=== PATIENT | female | born 1995 | race African-American/Black ===

== ENCOUNTER 2018-12-28 12:49 | Emergency (ER) | payer SELFPAY ==
--- NOTE | 2018-12-28 13:53 | RAD ---
3 views of the facial bones: 12/28/2018 COMPARISON: None HISTORY: Injury, trauma, pain FINDINGS: The lateral examination is slightly limited with respect to assessment of the nasal bones s econdary to technique. There is a transverse fracture of the nasal bones superiorly with no significant displacement appreciated. Imaged paranasal sinuses/mastoid air cells appear grossly unremarkable. IMPRESSION: Findings suggesting nondisplaced acute nasal bone fracture.
== END 2018-12-28 14:08 | disposition home or self-care (01) ==
LOC: ERS 12:49
DX: S02.2XXA Fracture of nasal bones, initial encounter for closed fracture (principal); V89.2XXA Person injured in unspecified motor-vehicle accident, traffic, initial encounter
CPT/HCPCS: 70150

== ENCOUNTER 2019-04-23 14:46 | Emergency (ER) | payer SELFPAY ==
[2019-04-23 16:17] LABS: Bilirubin Negative (Negative); Blood, Urine Negative (Negative); Clarity Turbid (Clear); Glucose, Urine (Dipstick) Normal (Negative); Leukocyte Negative Leu/uL (Negative); Nitrite Negative (Negative); Protein, Urine (Dipstick) Negative (Neg-Trace); Urobilinogen Normal mg/dL (Less than 2)
[2019-04-23] MEDS ORDERED: Ondansetron ODT 4 MG TAB ONE (16:20)
== END 2019-04-23 17:04 | disposition home or self-care (01) ==
LOC: ERS 14:46
DX: O21.0 Mild hyperemesis gravidarum (principal); Z3A.10 10 weeks gestation of pregnancy
CPT/HCPCS: 81003; 87086; 99284; Q0162

== ENCOUNTER 2019-05-07 14:04 | Emergency (ER) | payer SELFPAY ==
--- NOTE | 2019-05-07 15:50 | ULT ---
TRANSVAGINAL PELVIC ULTRASOUND: HISTORY: Vaginal bleeding and cramping. COMPARISON: None. FINDINGS: The uterus measures 9.4 x 4.9 x 4 cm. The ovaries are not well seen due to bowel gas. There appears to be an abnormally implanted gestational sac, which is dysplastic, in the lower uterin e segment, with a mean sac diameter of 1.4 cm. A pole is measured with a crown-rump length of 0.4 cm. No heart tones are appreciated. There is increased vascularity of the uterine fundus. IMPRESSION: Imaging findings suspicious for but not diagnostic of failure. Close follow-up hCG and ult rasound are recommended. POS: CET
[2019-05-07 16:20] LABS: #Basophils 0.1 thou/uL (0.0-0.2); #Eosinphils 0.1 thou/uL (0.0-0.7); #Lymphocytes 1.7 thou/uL (1.20-3.40); #Monocytes 0.6 thou/uL (0.11-0.59); #Neutrophils 5.8 thou/uL (1.40-6.50); %Basophils 0.7 % (0.0-1.0); %Eosinophils 1.4 % (0.0-10.0); %Lymphocytes 20.9 % (21.0-51.0); %Monocytes 7.7 % (0.0-10.0); %Neutrophils 69.3 % (42.0-75.0); Hemoglobin 12.3 g/dL (12.0-16.0); Mean Corpuscular HGB CONC 33.5 g/dL (32.0-36.0); Mean Corpuscular Hemoglobin 27.9 pg (27.0-31.0); Mean Corpuscular Volume 83.3 fL (78.0-98.0); Mean Platelet Volume 9.5 fL (7.4-10.4); Platelet Count 222 thou/uL (130-400); RBC Distribution Width 12.6 % (11.5-14.5); Red Blood Cell (RBC) Count 4.41 mill/uL (4.20-5.40); White Blood Cell (WBC) Count 8.3 thou/uL (4.8-10.8)
== END 2019-05-07 17:19 | disposition home or self-care (01) ==
LOC: ERS 14:04
DX: O03.9 Complete or unspecified spontaneous abortion without complication (principal)
CPT/HCPCS: 36415; 36416; 76856; 84702; 85025; 86850; 86900; 86901

== ENCOUNTER 2019-05-12 14:37 | Emergency (ER) | payer SELFPAY | END 2019-05-12 16:02 | disposition home or self-care (01) | LOC: ERS 14:37 | DX: O03.9 Complete or unspecified spontaneous abortion without complication (principal) | CPT/HCPCS: 36415; 84702; 99284 ==

== ENCOUNTER 2019-05-14 22:02 | Emergency (ER) | payer SELFPAY ==
[2019-05-14 22:54] LABS: #Lymphocytes 1.2 thou/uL (1.20-3.40); #Monocytes 0.6 thou/uL (0.11-0.59); #Neutrophils 7.1 thou/uL (1.40-6.50); %Basophils 0.3 % (0.0-1.0); %Eosinophils 0.4 % (0.0-10.0); %Lymphocytes 13.8 % (21.0-51.0); %Monocytes 6.9 % (0.0-10.0); %Neutrophils 78.6 % (42.0-75.0); Hemoglobin 9.2 g/dL (12.0-16.0); Mean Corpuscular HGB CONC 32.4 g/dL (32.0-36.0); Mean Corpuscular Hemoglobin 27.4 pg (27.0-31.0); Mean Corpuscular Volume 84.6 fL (78.0-98.0); Mean Platelet Volume 9.1 fL (7.4-10.4); Platelet Count 210 thou/uL (130-400); RBC Distribution Width 12.2 % (11.5-14.5); Red Blood Cell (RBC) Count 3.36 mill/uL (4.20-5.40)
== END 2019-05-14 23:47 | disposition home or self-care (01) ==
LOC: ERS 22:02
DX: O03.9 Complete or unspecified spontaneous abortion without complication (principal)
CPT/HCPCS: 36415; 84702; 85025; 86850; 86900; 86901; 99284

== ENCOUNTER 2019-10-20 21:57 | Emergency (ER) | payer OTHER ==
[2019-10-20] MEDS ORDERED: Lidocaine 1% w/Epinephrine 1:100K 20 ML VIAL ONE ×2 (22:32→22:46)
[2019-10-20] MEDS ORDERED: HYDROcodone/Acetaminophen 10/325 mg Tablet ONE (23:06)
[2019-10-20] MEDS ORDERED: Ondansetron ODT 4 MG TAB ONE (23:48)
== END 2019-10-20 23:57 | disposition home or self-care (01) ==
LOC: ERS 21:57
DX: L02.31 Cutaneous abscess of buttock (principal); Z79.899 Other long term (current) drug therapy
CPT/HCPCS: 10060; Q0162

== ENCOUNTER 2020-09-17 14:02 | Emergency (ER) | payer BC, OTHER, SELFPAY ==
[2020-09-17 14:45] LABS: BHCG - Serum POSITIVE (NEGATIVE); Pregs Control Background? CLEAR/WHITE (CLR/WHITE); Pregs Control Bar Appear? YES (CONTROL BAR)
[2020-09-17 14:50] LABS: #Eosinphils 0.1 thou/uL (0.0-0.7); #Lymphocytes 2.2 thou/uL (1.20-3.40); #Monocytes 0.7 thou/uL (0.11-0.59); %Basophils 0.3 % (0.0-1.0); %Eosinophils 1.4 % (0.0-10.0); %Lymphocytes 31.5 % (21.0-51.0); %Monocytes 9.9 % (0.0-10.0); %Neutrophils 56.9 % (42.0-75.0); Mean Corpuscular HGB CONC 32.3 g/dL (32.0-36.0); Mean Corpuscular Hemoglobin 26.9 pg (27.0-31.0); Mean Corpuscular Volume 83.3 fL (78.0-98.0); Mean Platelet Volume 9.5 fL (7.4-10.4); Platelet Count 237 thou/uL (130-400); Red Blood Cell (RBC) Count 4.08 mill/uL (4.20-5.40)
[2020-09-17 15:03] LABS: Bacteria/HPF None Seen HPF (None Seen); Bilirubin Negative (Negative); Blood, Urine 3+ (Negative); Clarity Clear (Clear); Glucose, Urine (Dipstick) Normal (Negative); Ketone, Urine 10 mg/dL (Negative); Leukocyte Negative Leu/uL (Negative); Nitrite Negative (Negative); Protein, Urine (Dipstick) 30 mg/dL (Neg-Trace); RBC/HPF Greater than 50 HPF (0-3); Specific Gravity, Urine 1.032 (1.002-1.036); Squamous Epithelial 0-3 HPF (0-3); Urobilinogen Normal mg/dL (Less than 2); pH, Urine 5.5 (5.0-9.0)
--- NOTE | 2020-09-17 16:21 | ULT ---
Pelvic sonogram transabdominal and transvaginal imaging with duplex evaluation HISTORY: Pelvic pain and bleeding. Beta hCG 1983. FINDINGS: Uterus measures up to 8.0 cm length. Endometrium is 0.9 cm thick without internal gestation al sac apparent. No free fluid within the pelvis. Right ovary is 3.6 cm length with good color and spectral Doppler flow. A lobular complex cystic mass at the left adnexa measures up to 8.7 cm x 7.7 cm x 5.8 cm greatest diameters. Thin internal septation. Small amount of Internal dependent debris. Good arterial flow is detected at the periphery , likely the remainder of the left ovary. IMPRESSION : Intrauterine gestational sac NOT visualized. Please consider close continued clinical and sonographic follow-up. Very large left adnexal cyst with slight complication (thin septation and small amount of internal de bris) 8.7 cm.
== END 2020-09-17 17:45 | disposition home or self-care (01) ==
LOC: ERS 14:02
DX: O20.0 Threatened abortion (principal); O99.891 Other specified diseases and conditions complicating pregnancy; N83.8 Other noninflammatory disorders of ovary, fallopian tube and broad ligament; Z3A.09 9 weeks gestation of pregnancy
CPT/HCPCS: 76856; 81003; 81015; 84702; 84703; 85025; 86850; 86900; 86901

== ENCOUNTER 2020-09-22 12:27 | Observation (INO) | payer BC, SELFPAY ==
[~2020-09-22 12:27] MED LIST: Dexamethasone 20 MG/5 ML VIAL ONE; Glycopyrrolate 0.2 MG/ML 5 ML SYRINGE ONE; Ketorolac Tromethamine 30 MG/ML VIAL ONE; Lidocaine 1% PF 5 ML VIAL ONE; Ondansetron PF 4 MG/2 ML Vial ONE; PROPOFOL 200 MG/20 ML VIAL ONE; Rocuronium Bromide 10 MG/ML (10ML VIAL) ONE; Succinylcholine 200 MG/10 ml SYRINGE FS ONE
[2020-09-22 13:21] LABS: #Lymphocytes 1.4 thou/uL (1.20-3.40); #Monocytes 0.4 thou/uL (0.11-0.59); #Neutrophils 6.6 thou/uL (1.40-6.50); %Basophils 0.3 % (0.0-1.0); %Eosinophils 0.5 % (0.0-10.0); %Lymphocytes 16.3 % (21.0-51.0); %Monocytes 4.8 % (0.0-10.0); %Neutrophils 78.1 % (42.0-75.0); Hemoglobin 11.7 g/dL (12.0-16.0); Mean Corpuscular HGB CONC 31.5 g/dL (32.0-36.0); Mean Corpuscular Hemoglobin 26.6 pg (27.0-31.0); Mean Corpuscular Volume 84.5 fL (78.0-98.0); Mean Platelet Volume 9.2 fL (7.4-10.4); Platelet Count 271 thou/uL (130-400); RBC Distribution Width 12.9 % (11.5-14.5); Red Blood Cell (RBC) Count 4.38 mill/uL (4.20-5.40); White Blood Cell (WBC) Count 8.4 thou/uL (4.8-10.8)
[2020-09-22] MEDS ORDERED: Ondansetron PF 4 MG/2 ML Vial ONE (14:40)
[2020-09-22 15:07] LABS: ALT (SGPT) Less than 7 U/L (8-55); AST (SGOT) 14 U/L (5-34); Albumin 4.7 g/dL (3.5-5.0); Alkaline Phosphatase 102 U/L (40-110); Anion Gap 18 mmol/L (10-20); BUN (Urea Nitrogen) 6 mg/dL (7.0-18.7); Bilirubin, Total 0.2 mg/dL (0.2-1.2); Calc. Creatinine Clearance 0 mL/min (70-130); Calcium 9.3 mg/dL (7.8-10.44); Carbon Dioxide 20 mmol/L (22-29); Chloride 106 mmol/L (98-107); Glucose 95 mg/dL (70-105); Potassium 3.4 mmol/L (3.5-5.1); Protein, Total 8.7 g/dL (6.0-8.3); Sodium 141 mmol/L (136-145)
[2020-09-22] MEDS ORDERED: Ondansetron ODT 8 MG TAB ONE (15:10)
--- NOTE | 2020-09-22 15:26 | ULT ---
Exam: Pelvic ultrasound HISTORY: Left-sided pelvic pain and vaginal bleeding. COMPARISON: 09/17/2020 TECHNIQUE: Multiple grayscale and color Doppler images were obtained in a transabdominal pelvic ultra sound. Spectral analysis of the Doppler waveforms of the ovaries were performed. FINDINGS: CERVIX: Unremarkable UTERUS: Normal in size without focal abnormality. ENDOMETRIAL STRIPE: 5 mm which is within normal limits for a normal menstruating female patient. No f luid or fluid collection is seen in the endometrial canal. No free fluid is present. RIGHT OVARY: Normal flow, without focal mass. LEFT OVARY:There is a large anechoic structure associated with the left ovary measuring 9 cm which wa s also seen on prior exam and overall unchanged in size. Again noted is suggestion of minimal increased echogenic material dependently which may represent a small amount of debris. Thin septation posteriorly is also again noted. Doppler evaluation with spectral analysis of the thin mantle of left ovarian tissue demonstrates arterial and venous flow. IMPRESSION: 1. Again, no fluid collection is seen in the endometrial canal to suggest an intrauterine gestation. Continued serial follow-up beta hCG levels are recommended. Ectopic patency cannot be excluded based on sonographic evaluation. 2. Persistent large left adnexal cyst with thin septation small amount of debris. Largest measurement is approximately 9 cm.
[2020-09-22] MEDS ORDERED: Ondansetron ODT 4 MG TAB SL PRN (16:30)
[2020-09-22] MEDS ORDERED: Acetaminophen 325 MG TAB PO PRN (16:30)
[2020-09-22] MEDS ORDERED: Ondansetron PF 4 MG/2 ML Vial IVP PRN (16:30)
[2020-09-22] MEDS ORDERED: Sodium Chloride 0.9% 20 ML ONE (17:18)
[2020-09-22] MEDS ORDERED: EPINEPHrine 1 MG/ML AMP ONE (17:32)
[2020-09-22] MEDS ORDERED: Bupivacaine PF 0.5% 30 ML VIAL ONE (17:32)
[2020-09-22 18:09] LABS: SARS-CoV-2 NAA Rapid Test Not Detected (NotDetected)
[2020-09-22] MEDS ORDERED: Morphine 4 MG/ML VIAL SLOW IVP SCH (18:15)
[2020-09-22] MEDS ORDERED: Midazolam HCl 2 mg/2 ml Vial ONE ×2 (19:33→19:40)
[2020-09-22] MEDS ORDERED: Fentanyl 100 MCG/2 ML VIAL ONE ×3 (19:40→22:27)
[2020-09-22] MEDS ORDERED: Silver Nitrate Application 1 EACH ONE (21:39)
[2020-09-22] MEDS ORDERED: SUGAMMADEX SODIUM 200 MG/2 ML VIAL ONE (21:47)
[2020-09-22] MEDS ORDERED: Promethazine HCl 25 MG/ML VIAL SLOW IVP PRN (21:55)
[2020-09-22] MEDS ORDERED: Promethazine HCl 25 MG/ML VIAL IM PRN (21:55)
[2020-09-22] MEDS ORDERED: Ondansetron HCl/PF 4 MG/2 ML Vial IVP PRN (21:55)
[2020-09-22] MEDS ORDERED: Sodium Chloride 0.9% 10 ML ONE (22:03)
[2020-09-22] MEDS ORDERED: Acetaminophen/Codeine 30-300mg Tablet PO PRN (22:26)
[2020-09-22] MEDS ORDERED: Morphine 2 MG/ML VIAL SLOW IVP PRN (22:29)
[2020-09-22] MEDS: Sodium Chloride 0.9% 1,000 ML IV SCH ×2 (23:21→23:41)
[2020-09-22 23:24] VITALS: TEMP 98.2
[2020-09-22 23:33] VITALS: BP 128/77
[2020-09-22] MEDS ORDERED: Ketorolac Tromethamine 30 MG/ML VIAL IVP SCH (23:59)
[2020-09-23 00:28] VITALS: BMI 22.7
--- NOTE | 2020-09-23 02:58 | OP ---
DATE OF PROCEDURE: 09/22/2020 PREOPERATIVE DIAGNOSES: 1. Left adnexal mass. 2. Acute pelvic pain. 3. Positive test with no intrauterine . POSTOPERATIVE DIAGNOSES: 1. Dermoid tumor with ovarian torsion. 2. No evidence of ectopic . 3. Completed SAB. PROCEDURE PERFORMED: Diagnostic laparoscopy with left cystectomy. Surgeon: WILFREDO Sam MD ANESTHESIA: General. ESTIMATED BLOOD LOSS: Less than 50 mL. COMPLICATIONS: None. COUNTS: Correct. CONDITION: Stable to recovery room. SPECIMEN: Dermoid tumor with partial ovarian tissue and serous fluid. DESCRIPTION OF PROCEDURE: The patient is a 25-year-old female presenting to the emergency room after initial visit two days prior for acute onset worsening abdominal pain. Quantitative hCG still present at 300 with no evidence of intrauterine . Given the amount of pain that she was eliciting, the size of this adnexal mass and the presence of clearly unexplainable hCG level. Decision was made to take the patient to the operating room for evaluation. The patient after providing informed consent was taken to the operating room, placed under general anesthesia and placed in dorsal lithotomy position without an Bahman stirrups. Attention was placed vaginally, where with an aid of operative speculum, cervix was identified and grasped with a single-tooth tenaculum and the uterine manipulator was then introduced. Attention was placed abdominally. A 5 mm skin incision was made in the base of the umbilicus, a 10 mm incision was made midline at the suprapubic region, and a 5 mm incision was made in the left lateral region. A Veress needle was introduced in the base of the umbilicus, and abdomen was insufflated to 15 mmHg. Entry pressure was 5 mmHg. A 5 mm port with trocar was then introduced into the umbilicus and confirmation of proper placement was made by laparoscope. Immediately visible in the pelvis was a large left ovary with clear evidence of ovarian torsion of about 720 degrees. The ovary, however, did appear to be viable and white. Two other ports were then introduced under direct visualization, a 10 mm port at the suprapubic region and a 5 mm in the left lateral. The ovary was then rotated for resolution of this torsion. A 30 mL of the cystic fluid was then removed for pathology to review. The remaining fluid was sucked out into the suction canister. A defect in the cystic portion of the ovary was then made, large enough to be able to identify and remove the vast majority of the cyst wall, which was then removed through the laparoscopic ports. In the process of doing so, it was noted that there was a dermoid tumor with hair and fat present. This also was excised out and removed as much as possible excising the cystic portion. The ovarian tissue medially around this conglomeration of hair and fat, and other tissue was transected from the main portion of the ovary and this tissue was then placed in a laparoscopic EndoCatch bag and removed. The edge of the ovary was made hemostatic with monopolar paddle device. Thorough irrigation of the pelvis revealed good hemostasis of the remaining portion of the ovary, which was vast majority of the ovarian tissue. Once this was performed, inspection of the liver revealed good smooth liver edge and normal-appearing appendix. Again, area was irrigated and fluid was suctioned out. The suprapubic port had a fascial stitch placed laparoscopically for closure. The abdomen was then deflated, and the remaining incisions were then closed with 4-0 Monocryl in a running fashion. Attention was placed vaginally, where the tenaculum and the uterine manipulator were removed and inspection of the cervix revealed good hemostasis. Procedure was then completed as the patient was extubated and taken to recovery room in stable condition. Job ID: [id number] [facility]OSPITALCheyanne
--- NOTE | 2020-09-23 04:27 | DIS ---
DATE OF ADMISSION: 09/22/2020 DATE OF DISCHARGE: 09/23/2020 ADMITTING DIAGNOSES: 1. Acute pelvic pain with left adnexal mass. 2. Positive test with no intrauterine . DISCHARGE DIAGNOSES: 1. Acute pelvic pain with left adnexal mass. 2. Positive test with no intrauterine . 3. Ovarian torsion and likely completed with no evidence of ectopic . 4. Status post diagnostic laparoscopy with cystectomy. PROCEDURE: Diagnostic laparoscopy with left ovarian cystectomy. CONSULTATIONS: None. HOSPITAL COURSE: The patient is a 25-year-old female, who was representing to the emergency room for serial quantitative hCG, also experiencing worsening pelvic pain. Given the presence of a positive test and no evidence of intrauterine today, neither at her initial visit 2 days ago and increasing pain, the patient was taken to the operating room for evaluation. There, she was noted to have an ovarian torsion. For complete details, please refer to the operative note. A cystectomy was performed and the vast majority of ovarian tissue was left intact. The patient upon completion of the procedure and recovery from anesthesia, felt tremendously improved and desired discharge home. The patient has an appointment with Dr. Cotton in the next 3 days for an initial OB visit. We have encouraged that she keep that appointment for followup and the patient is being discharged home. PHYSICAL EXAMINATION: VITAL SIGNS: Her discharge vital signs, 134/76, temperature 98.2, pulse of 84, respiratory rate of 18, and saturating 100% on room air. GENERAL: She appears to be in no acute distress. She is alert, oriented, cooperative, and pleasant to interact with. HEAD: Normocephalic, atraumatic. SKIN: Incisions are clean, dry, and intact. The patient is having good pain control. DISCHARGE INSTRUCTIONS: The patient is being discharged home on ibuprofen and Tylenol 3. She will follow up again with Dr. Cotton in 3 days and the patient has been given signs of infection. Job ID: [id number]
[2020-09-23] MEDS ORDERED: FLU VACC QS2020-21(6MOS UP)/PF 60 MCG/0.5 ML SYRINGE IM ONE (09:00)
== END 2020-09-23 00:17 | disposition home or self-care (01) ==
LOC: ERS 12:27 → 3SW 16:06 → ERS 16:51 → 3SW 16:53
PROVIDERS: ADMIT Obstetrics & Gynecology; ATTEND Obstetrics & Gynecology
PROC: 0UB14ZZ Excision of Left Ovary, Percutaneous Endoscopic Approach (ICD-10-PCS; principal; 2020-09-22)
DX: D27.1 Benign neoplasm of left ovary (principal); N83.512 Torsion of left ovary and ovarian pedicle; Z20.822 Contact with and (suspected) exposure to COVID-19
CPT/HCPCS: 36415; 76856; 80053; 84702; 85025; 86850; 86900; 86901; 88112; 88307; 93976; 96374; G0378; J0171; J1100; J1885; J2250; J2405; J2704; J3010; Q0162; S0020; U0002

== ENCOUNTER 2021-07-08 14:56 | Emergency (ER) | payer BC, OTHER | END 2021-07-08 17:34 | disposition home or self-care (01) | LOC: ERS 14:56 | DX: O99.891 Other specified diseases and conditions complicating pregnancy (principal); R10.30 Lower abdominal pain, unspecified; Z3A.34 34 weeks gestation of pregnancy | CPT/HCPCS: 99283 ==

== ENCOUNTER 2022-03-22 18:37 | Emergency (ER) | payer OTHER ==
[2022-03-22] MEDS ORDERED: Ketorolac Tromethamine 30 MG/ML VIAL ONE (21:03)
[2022-03-22] MEDS ORDERED: HYDROcodone/Acetaminophen 5/325 mg Tablet ONE (21:03)
[2022-03-22] MEDS ORDERED: Lidocaine 1% PF 5 ML VIAL ONE ×3 (21:07→22:45)
[2022-03-22] MEDS ORDERED: Acetaminophen 325 MG TAB ONE ×2 (23:47)
== END 2022-03-22 23:53 | disposition home or self-care (01) ==
LOC: ERS 18:37
DX: L03.317 Cellulitis of buttock (principal)
CPT/HCPCS: 10061; 96372; J1885

== ENCOUNTER 2023-10-08 04:43 | Emergency (ER) | payer BC, MEDICAID, SELFPAY ==
[2023-10-08 07:20] LABS: #Eosinphils 0.1 thou/uL (0.0-0.7); #Monocytes 0.5 thou/uL (0.11-0.59); %Basophils 0.3 % (0.0-1.0); %Eosinophils 0.7 % (0.0-10.0); %Lymphocytes 19.4 % (21.0-51.0); %Monocytes 7.1 % (0.0-10.0); %Neutrophils 72.4 % (42.0-75.0); Hematocrit 38.6 % (36.0-47.0); Hemoglobin 12.2 g/dL (12.0-16.0); Mean Corpuscular HGB CONC 31.6 g/dL (32.0-36.0); Mean Corpuscular Hemoglobin 26.3 pg (27.0-31.0); Mean Corpuscular Volume 83.2 fl (78.0-98.0); Mean Platelet Volume 11.5 fL (7.4-10.4); Platelet Count 229 10x3/uL (130-400); RBC Distribution Width 13.2 % (11.5-14.5); Red Blood Cell (RBC) Count 4.64 mill/uL (4.20-5.40); White Blood Cell (WBC) Count 6.9 10x3/uL (4.8-10.8)
[2023-10-08 07:32] LABS: BHCG - Serum Negative (NEGATIVE); Pregs Control Background? CLEAR/WHITE (CLR/WHITE); Pregs Control Bar Appear? YES (CONTROL BAR)
[2023-10-08 07:41] LABS: ALT (SGPT) 17 U/L (8-55); AST (SGOT) 15 U/L (5-34); Albumin 4.1 g/dL (3.5-5.0); Alkaline Phosphatase 102 U/L (40-110); Anion Gap 12 mmol/L (10-20); BUN (Urea Nitrogen) 5 mg/dL (7.0-18.7); Bilirubin, Total 0.3 mg/dL (0.2-1.2); Calc. Creatinine Clearance 0 mL/min (70-130); Calcium 8.4 mg/dL (7.8-10.44); Carbon Dioxide 20 mmol/L (22-29); Chloride 110 mmol/L (98-107); Estimated GFR 114; Globulin 3.7 g/dL (2.4-3.5); Glucose 96 mg/dL (70-105); Potassium 3.7 mmol/L (3.5-5.1); Protein, Total 7.8 g/dL (6.0-8.3); Sodium 138 mmol/L (136-145)
[2023-10-08 07:52] LABS: Troponin I Less than 0.010 ng/mL (< 0.028)
== END 2023-10-08 08:03 | disposition home or self-care (01) ==
LOC: ERS 04:43
DX: R07.9 Chest pain, unspecified (principal); R42 Dizziness and giddiness; R29.710 NIHSS score 10
CPT/HCPCS: 36415; 70450; 71045; 80053; 84484; 84703; 85025; 93005